=== PATIENT | male | born 1970 | race Asian ===

== ENCOUNTER 2024-01-20 06:02 | Day surgery (SDC) | payer OTHER, SELFPAY ==
[2024-01-09 13:20] VITALS: BMI 27.0
[2024-01-09 13:53] LABS: % Basophils 0.7 % (0-2); % Eosinophils 3.7 % (0-6); % Immature Granulocytes 0.1 % (0-0.5); % Lymphocytes 39.2 % (20.5-51.1); % Monocytes 5.3 % (1.7-9.3); Absolute Basophils 0.1 10^3/uL (0-0.2); Absolute Eosinophils 0.3 10^3/uL (0-0.7); Absolute Lymphocytes 2.7 10^3/uL (1.2-3.4); Absolute Monocytes 0.4 10^3/uL (0.1-0.6); Absolute Neutrophils 3.6 10^3/uL (1.4-6.5); Hematocrit 40.2 % (39.0-52.0); Hemoglobin 13.7 g/dL (13.0-18.0); Mean Corp Hgb Conc. 34.1 g/dL (33.0-37.0); Mean Corpuscular Hgb 28.2 pg (27.0-31.0); Mean Corpuscular Volume 82.7 fL (80.0-94.0); Mean Platelet Volume 11.3 fL (7.4-10.4); Nucleated Red Blood Cells % 0 % (-); Platelet Count 208 10^3/uL (130-400); Red Blood Cell Count 4.86 10^6/uL (4.70-6.10)
[2024-01-09 15:00] LABS: ALT (SGPT) 24 U/L (0-50); AST (SGOT) 27 U/L (17-59); Albumin 4.8 g/dl (3.5-5.0); Alkaline Phosphatase 74 U/L (38-126); Blood Urea Nitrogen 15 mg/dl (9-20); Calcium 9.9 mg/dl (8.4-10.2); Carbon Dioxide 27 mmol/L (22-30); Chloride 102 mmol/L (98-107); Estimated Creatinine Clearance 75 ml/min; Glucose 110 mg/dl (70-99); Potassium 4.3 mmol/L (3.5-5.1); Sodium 142 mmol/L (135-145); Total Bilirubin 0.7 mg/dl (0.2-1.3); Total Protein 6.9 g/dl (6.3-8.2); eGFR > 60.00
[2024-01-20] VITALS (13 sets, daily range): BP systolic 110–143; BP diastolic 68–81
[2024-01-20] MEDS: NSS 208 ML IV (06:58)
[2024-01-20] MEDS: LOW STRENGTH ASPIRIN 81 MG PO (06:58)
--- NOTE | 2024-01-20 08:33 | ITS.CL.CATH ---
[facility] - Catheterization
Cardiac Catheterization
Procedure Report:
CARDIAC CATHETERIZATION REPORT
Date of Procedure: 01/20/2024
Referring: Cuauhtemoc Larios DO
Indication: Exertional dyspnea with prior history of stenting (2015) and nonischemic stress test
�
HEMODYNAMIC DATA
AO: 126/74
LV: 126/20
�
LEFT VENTRICULOGRAPHY: Normal left ventricular wall motion with EF 59%
�
CORONARY ANGIOGRAPHY
Dominance: Right
Left Main: 10% distal tapering
LAD: 20-30% proximal LAD stenosis with otherwise trivial luminal irregularities
Circumflex: Widely patent proximal circumflex stent with otherwise mild luminal irregularities
RCA: Dominant vessel with trivial luminal irregularities
�
Closure Device: None-the procedure was performed via the right radial artery. The Vlad's test was normal prior to the procedure.
�
Radiation (mGy): 94
DAP (cm2.Gy): 8.2
Fluoroscopy time: 1.5 minutes
�
CONCLUSIONS
1:� Elevated LVEDP
2:�Normal left ventricular function with EF 59%
3. Widely patent proximal circumflex stent with mild residual CAD
4. Continue risk factor modification efforts and lifelong aspirin therapy. Goal LDL less than 70
�
�
Copy to: Cuauhtemoc Larios DO, Cuauhtemoc Ventura DO
�
Nelson Butcher MD, [facility], [facility]
[2024-01-20] MEDS: NSS 1000 IV (08:36)
== END 2024-01-20 11:46 | disposition home or self-care (01) ==
LOC: CATH 06:02
PROVIDERS: ATTENDING PHYSICIAN Internal Medicine Cardiovascular Disease; FAMILY PHYSICIAN Student in an Organized Health Care Education/Training Program; OTHER PHYSICIAN Internal Medicine Cardiovascular Disease
DX: I25.10 Atherosclerotic heart disease of native coronary artery without angina pectoris (principal); R06.09 Other forms of dyspnea; R53.83 Other fatigue; Z95.5 Presence of coronary angioplasty implant and graft; I10 Essential (primary) hypertension; E78.5 Hyperlipidemia, unspecified; Z82.49 Family history of ischemic heart disease and other diseases of the circulatory system; Z79.82 Long term (current) use of aspirin
CPT/HCPCS: 36415; 80053; 85025; 93005; 93458; C1894; Q9967